=== PATIENT | female | born 1940 | race Caucasian/White ===

== ENCOUNTER 2022-04-28 14:37 | Emergency (ER) | payer MEDICARE, OTHER ==
[~2022-04-28] VITALS: Ht 154.9 cm; Wt 55.0 kg
[2022-04-28] MEDS ORDERED: TETANUS-DIPTH-ACEL PERTUSSIS 0.5ML SYR Tdap IM ONE (20:15)
[2022-04-28] MEDS ORDERED: BACITRACIN TOP OINT 1 UD PKG TOP ONE (20:15)
[2022-04-28 20:25] VITALS: BP 136/78
== END 2022-04-28 21:39 | disposition home or self-care (01) ==
LOC: ER 14:37 → EDBD 14:37 → ER 20:25
DX: S61.213A Laceration without foreign body of left middle finger without damage to nail, initial encounter (principal); W26.0XXA Contact with knife, initial encounter; Y93.89 Activity, other specified; Y92.89 Other specified places as the place of occurrence of the external cause; Y99.8 Other external cause status
CPT/HCPCS: 12001; 73130; 90471; 90715